=== PATIENT | female | born 1980 | race Caucasian/White ===

== ENCOUNTER 2017-01-16 15:01 | Emergency (ER) | payer BC ==
--- NOTE | 2017-01-16 15:09 | PDOC ---
Rapid Medical Evaluation Chief Complaint: Back Pain Time Seen by Provider: 01/16/17 15:08 Medical Evaluation: Allergies Allergy/AdvReac Type Severity Reaction Status Date / Time No Known Allergies Allergy Verified 08/03/15 07:39 01/16/17 15:08 I have performed a brief in-person evaluation of this patient. The patient presents with a chief complaint of: back injury Pertinent physical exam findings: ambulatory, stable I have ordered the following: provider to determine The patient will proceed to the ED for further evaluation.
[2017-01-16 15:11] VITALS: BP 108/90; PULSE 85; TEMP 97.8; BMI 31.6
--- NOTE | 2017-01-16 16:38 | PDOC ---
History of Present Illness - General Chief Complaint: Back Pain Stated Complaint: BACK PAIN Time Seen by Provider: 01/16/17 15:08 - History of Present Illness Initial Comments: 01/16/17 16:37 CHIEF COMPLAINT: back pain HISTORY OF PRESENT ILLNESS: 36 yo F with no significant PMH presents to [facility] with c/o of back pain s/p lifting heavy boxes at work. Patient reports moving "several" heavy boxes and upon the fourth one, she felt her back "give out." She continued to work for the rest of the afternoon by mitigating the pain with a heat pad and taking 2 Advil approximately 5 hours ago. She denies any chance of . PAST MEDICAL HISTORY: Denies past medical history FAMILY HISTORY: Denies SOCIAL HISTORY: Denies tobacco, alcohol, illicit drug use. SURGICAL HISTORY: Denies ALLERGIES: No known drug allergies REVIEW OF SYSTEMS General/Constitutional: Denies fever or chills. Denies weakness, weight change. HEENT: Denies change in vision. Denies ear pain or discharge. Denies sore throat. Cardiovascular: Denies chest pain or shortness of breath. Respiratory: Denies cough, wheezing, or hemoptysis. Gastrointestinal: Denies loss of bowel or bladder function. Denies nausea, vomiting, diarrhea or constipation. Denies rectal bleeding. Genitourinary: Denies dysuria, frequency, or change in urination. Musculoskeletal: Lower back pain, worsening with movement. Denies loss of sensation to lower extremities. Skin and breasts: Denies rash or easy bruising. PHYSICAL EXAM General Appearance: Well-appearing, appropriately dressed. No apparent distress. HEENT: EOMI, PERRLA. No conjunctival pallor. No photophobia, scleral icterus. Respiratory/Chest: Lungs CTAB. Cardiovascular: RRR. S1, S2. Gastrointestinal/Abdominal: Normal bowel sounds. Abdomen soft, non-distended. No tenderness or rebound tenderness. No organomegaly, pulsatile mass, guarding , hernia, hepatomegaly, splenomegaly. Musculoskeletal/Extremities: Tenderness to mid-lower back on palpation. Sensory discrimination intact to LE b/l. Normal inspection. FROM of all extremities, normal capillary refill. Pelvis Stable. No CVA tenderness. No tenderness to extremities, pedal edema, swelling, erythema or deformity. Integumentary: Appropriate color, dry, warm. No cyanosis, erythema, jaundice or rash Neurologic: sales and marketing director II-XII intact. Fully oriented, alert. Appropriate mood/affect. Motor strength 5/5. No appreciable EOM palsy, facial droop or sensory deficit. 01/16/17 16:46 Past History - Past Medical History Allergies/Adverse Reactions: Allergies Allergy/AdvReac Type Severity Reaction Status Date / Time No Known Allergies Allergy Verified 01/16/17 15:11 Home Medications: Ambulatory Orders Cyclobenzaprine HCl [Flexeril -] 10 mg PO HS #7 tablet 01/16/17 Diclofenac Sodium 75 mg PO BID #14 tablet. 01/16/17 COPD: No HTN: No - Surgical History Abdominal Surgery: Yes Cholecystectomy: Yes - Reproductive History (#): 5 Para: 2 Therapeutic (s) & number: Yes (1) Spontaneous : 1 - Suicide/Smoking/Psychosocial Hx Smoking Status: No Smoking History: Never smoked Have you smoked in the past 12 months: No Number of Cigarettes Smoked Daily: 0 Information on smoking cessation initiated: No Hx Alcohol Use: No Drug/Substance Use Hx: No Substance Use Type: None *Physical Exam - Vital Signs Last Vital Signs Temp Pulse Resp BP Pulse Ox 97.8 F 85 18 108/90 100 01/16/17 15:08 01/16/17 15:08 01/16/17 15:08 01/16/17 15:08 01/16/17 15:08 Medical Decision Making - Medical Decision Making 01/16/17 16:49 36 yo F with no significant PMH presents [facility] with c/o of back pain s/ p lifting heavy boxes at work. -60 mg Toradol Diclofenac, cyclobenzaprine rx sent to pharm Advised patient to take medication as prescribed and follow up with orthopedics if pain persists past 2-3 days. Advised patient of signs and symptoms for return to ED. Patient verbalized understanding and agrees to plan. *DC/Admit/Observation/Transfer Diagnosis at time of Disposition: Low back pain Qualifiers: Chronicity: acute Back pain laterality: midline Sciatica presence: without sciatica Qualified Code(s): M54.5 - Low back pain - Discharge Dispostion Disposition: HOME Condition at time of disposition: Stable Admit: No - Prescriptions Prescriptions: Cyclobenzaprine HCl [Flexeril -] 10 mg PO HS #7 tablet Diclofenac Sodium 75 mg PO BID #14 tablet. - Referrals Referrals: Domingo Velasquez MD [Staff Physician] - - Patient Instructions Printed Discharge Instructions: DI for Muscle Strain, DI for Low Back Pain Additional Instructions: Please take medication as prescribed. As discussed, do NOT drive, drink alcohol , or operate machinery while taking cyclobenzaprine. Follow up with orthopedics in 3-5 days if symptoms do not improve. If you develop ANY loss of bowel or bladder function, loss of sensation to your legs, inability to walk, or any new or worsening symptoms, please return to the ER. - Post Discharge Activity
[2017-01-16] MEDS ORDERED: KETOROLAC TROMETHAMINE 60 MG/2 ML VIAL IM ONE (16:45)
[2017-01-16] MEDS ORDERED: KETOROLAC TROMETHAMINE 60 MG/2 ML VIAL ONE (16:57)
== END 2017-01-16 17:12 | disposition home or self-care (01) ==
LOC: JERFT 15:01
DX: M54.5 Low back pain (principal)
CPT/HCPCS: 84703; 99281-25

== ENCOUNTER 2018-01-07 21:19 | Emergency (ER) | payer BC ==
[2018-01-07 21:25] VITALS: BP 138/80; PULSE 91; TEMP 98.2; BMI 31.9
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
[2018-01-07] MEDS ORDERED: KETOROLAC TROMETHAMINE 60 MG/2 ML VIAL ONE (22:31)
[2018-01-07] MEDS ORDERED: KETOROLAC TROMETHAMINE 60 MG/2 ML VIAL IM ONE (22:32)
== END 2018-01-07 22:52 | disposition home or self-care (01) ==
LOC: JERFT 21:19
PROC: 3E0233Z Introduction of Anti-inflammatory into Muscle, Percutaneous Approach (ICD-10-PCS; principal; 2018-01-07)
DX: S16.1XXA Strain of muscle, fascia and tendon at neck level, initial encounter (principal); V48.6XXA Car passenger injured in noncollision transport accident in traffic accident, initial encounter; Y92.488 Other paved roadways as the place of occurrence of the external cause; Y93.89 Activity, other specified; Y99.8 Other external cause status
CPT/HCPCS: 84703; 99281-25

== ENCOUNTER 2019-04-22 13:24 | Emergency (ER) | payer BC ==
[2019-04-22 13:34] VITALS: BP 137/87; PULSE 115; TEMP 100.4; BMI 33.4
[2019-04-22] MEDS ORDERED: ACETAMINOPHEN 500 MG TABLET (FP) PO ONE (15:14)
[2019-04-22] MEDS ORDERED: ACETAMINOPHEN 500 MG TABLET (FP) ONE (15:27)
--- NOTE | 2019-04-22 15:34 | PDOC ---
History of Present Illness - General Chief Complaint: Cold Symptoms Stated Complaint: COUGH/HEADACHE Time Seen by Provider: 04/22/19 14:57 - History of Present Illness Initial Comments: 04/22/19 15:33 38-year-old female without comorbidities presents for flulike symptoms and positive flu contacts at work x1 day Past History - Past Medical History Allergies/Adverse Reactions: Allergies Allergy/AdvReac Type Severity Reaction Status Date / Time No Known Allergies Allergy Verified 04/22/19 13:34 Home Medications: Ambulatory Orders Cyclobenzaprine HCl 10 mg PO Q8H PRN #14 tablet 01/07/18 Naproxen [Naprosyn -] 500 mg PO BID #30 tablet 01/07/18 Oseltamivir Phosphate [Tamiflu] 75 mg PO BID #10 capsule 04/22/19 COPD: No HTN: No - Surgical History Abdominal Surgery: Yes Cholecystectomy: Yes - Reproductive History (#): 5 Para: 2 Therapeutic (s) & number: Yes (1) Spontaneous : 1 - Psycho Social/Smoking Cessation Hx Smoking Status: No Smoking History: Never smoked Have you smoked in the past 12 months: No Number of Cigarettes Smoked Daily: 0 Hx Alcohol Use: No Drug/Substance Use Hx: No Substance Use Type: None Review of Systems - Review of Systems Constitutional: Yes: Fever, Malaise, Night Sweats HEENTM: Yes: Nose Congestion Respiratory: Yes: Cough *Physical Exam - Vital Signs Last Vital Signs Temp Pulse Resp BP Pulse Ox 100.4 F H 115 H 18 137/87 98 04/22/19 13:30 04/22/19 13:30 04/22/19 13:30 04/22/19 13:30 04/22/19 13:30 - Physical Exam 04/22/19 15:33 GENERAL: The patient is awake, alert, and fully oriented, in no acute distress. HEAD: Normal with no signs of trauma. EYES: sclera anicteric, conjunctiva clear. ENT: Ears normal tympanic membranes normal oropharynx clear uvula midline NECK: Normal range of motion LUNGS: Breath sounds equal, clear to auscultation bilaterally. No wheezes, and no crackles. HEART: S1 and S2 without murmur, rub or gallop. ABDOMEN: Soft, nontender, normoactive bowel sounds. No guarding, no rebound. No masses. EXTREMITIES: Normal range of motion, no edema. No clubbing or cyanosis. No cords, erythema, or tenderness. NEUROLOGICAL: Cranial nerves II through XII grossly intact. PSYCH: Normal mood, normal affect. SKIN: Warm, Dry, normal turgor, no rashes or lesions noted. ED Treatment Course - Medications Given in the ED: ED Medications Discontinued Medications Generic Name Dose Route Start Last Admin Trade Name Vicky PRN Reason Stop Dose Admin Acetaminophen 1,000 mg 04/22/19 15:14 04/22/19 15:29 Tylenol - PO 04/22/19 15:15 1,000 mg ONCE ONE Administration Medical Decision Making - Medical Decision Making 04/22/19 15:33 We will treat for flu based on sick contacts and symptoms Discharge - Discharge Information Problems reviewed: Yes Clinical Impression/Diagnosis: Influenza Condition: Stable Disposition: HOME - Admission No - Additional Discharge Information Prescriptions: Oseltamivir Phosphate [Tamiflu] 75 mg PO BID #10 capsule - Follow up/Referral Referrals: Shantelle Kinsey MD [Staff Physician] - - Patient Discharge Instructions Additional Instructions: Tylenol Motrin as directed for fever and body aches. Return to the emergency room for worsening symptoms and without fail follow-up with your primary care physician in 1 to 2 days for further evaluation and treatment options. Please take the Tamiflu as directed. - Post Discharge Activity Work/Back to School Note: Back to Work
== END 2019-04-22 15:56 | disposition home or self-care (01) ==
LOC: JERFT 13:24
DX: J11.1 Influenza due to unidentified influenza virus with other respiratory manifestations (principal); Z90.49 Acquired absence of other specified parts of digestive tract
CPT/HCPCS: 99284-25

== ENCOUNTER 2020-04-08 15:26 | Emergency (ER) | payer OTHER ==
[2020-04-08 15:44] VITALS: BP 129/76; TEMP 98.5; BMI 31.9
[2020-04-08 17:16] VITALS: PULSE 88
== END 2020-04-08 17:31 | disposition home or self-care (01) ==
LOC: JERFT 15:26 → JER 15:26 → JERFT 17:31
DX: U07.1 COVID-19 (principal); R07.89 Other chest pain
CPT/HCPCS: 71046-TC-FY; 93005; 93010; 99284-25

== ENCOUNTER 2020-10-01 13:32 | Emergency (ER) | payer OTHER ==
[2020-10-01 13:45] VITALS: BP 134/83; PULSE 71; TEMP 97.5; BMI 34.2
[2020-10-01] MEDS ORDERED: DIPHTH,PERTUSS(ACELL),TET 0.5 ML DISP.SYRIN IM ONE ×2 (14:33→14:34)
== END 2020-10-01 15:35 | disposition home or self-care (01) ==
LOC: JERFT 13:32
PROC: 3E0234Z Introduction of Serum, Toxoid and Vaccine into Muscle, Percutaneous Approach (ICD-10-PCS; principal; 2020-10-01)
DX: S61.151A Open bite of right thumb with damage to nail, initial encounter (principal); W54.0XXA Bitten by dog, initial encounter
CPT/HCPCS: 90715; 99284-25

== ENCOUNTER 2021-04-16 00:18 | Observation (INO) | payer OTHER ==
[2021-04-16 01:08] LABS: BASO % 0.8 % (0-2.0); EOS % 1.6 % (0-4.5); HEMATOCRIT 27.2 % (32.4-45.2); LYMPH % 26.1 % (8-40); MCHC 33.2 g/dl (32.0-36.0); MEAN CELL VOLUME 87.3 fl (80-96); MEAN PLT VOLUME 8.9 fl (7.5-11.1); MONO % 6.9 % (3.8-10.2); NEUT % 64.6 % (42.8-82.8); PLATELET COUNT 241 10^3/uL (134-434); RBC 3.11 M/mm3 (3.60-5.2); RDW 14.1 % (11.6-15.6); WHITE BLOOD COUNT 9.5 K/mm3 (4.0-10.0)
[2021-04-16] MEDS ORDERED: ONDANSETRON 4 MG/2 ML VIAL ONE (01:13)
[2021-04-16 01:15] LABS: INR 1.16 (0.83-1.09); PROTHROMBIN TIME (PATIENT) 13.4 SEC (9.7-13.0)
[2021-04-16 01:18] LABS: ACTIVATED PTT 20.6 SECONDS (25.2-36.5)
[2021-04-16 01:19] LABS: CALCIUM 8.5 mg/dL (8.5-10.1)
[2021-04-16 01:20] LABS: ALBUMIN 3.3 g/dl (3.4-5.0); BLOOD UREA NITROGEN 22.1 mg/dL (7-18)
[2021-04-16 01:23] LABS: CREATININE 0.8 mg/dL (0.55-1.3)
[2021-04-16 01:24] LABS: BILIRUBIN,TOTAL 0.2 mg/dL (0.2-1); TOT PROT 6.4 g/dl (6.4-8.2)
[2021-04-16] MEDS ORDERED: SODIUM CHLORIDE 0.9% 500 ML INFUS.BAG IV ONE (01:28)
[2021-04-16] MEDS ORDERED: ONDANSETRON 4 MG/2 ML VIAL IVPUSH ONE (01:29)
[2021-04-16 04:52] LABS: BASO % 0.4 % (0-2.0); EOS % 0.1 % (0-4.5); LYMPH % 15.1 % (8-40); MCH 28.9 pg (25.7-33.7); MCHC 33.4 g/dl (32.0-36.0); MEAN CELL VOLUME 86.6 fl (80-96); MEAN PLT VOLUME 8.3 fl (7.5-11.1); NEUT % 80.4 % (42.8-82.8); PLATELET COUNT 228 10^3/uL (134-434); RBC 2.77 M/mm3 (3.60-5.2); RDW 13.7 % (11.6-15.6); WHITE BLOOD COUNT 10.1 K/mm3 (4.0-10.0)
[2021-04-16] MEDS ORDERED: LACTATED RINGERS SOLUTION 1000 ML INFUS.BAG IV ONE (05:35)
[2021-04-16] MEDS ORDERED: TRANEXAMIC ACID 1000 MG/10 ML VIAL IVPUSH ONE (05:37)
[2021-04-16] MEDS ORDERED: medroxyPROGESTERone ACET 150 MG/1 ML VIAL IM ONE (05:37)
[2021-04-16] MEDS ORDERED: TRANEXAMIC ACID 1000 MG/10 ML VIAL ONE (05:56)
[2021-04-16] MEDS ORDERED: LACTATED RINGERS SOLUTION 1,000 ML IV SCH (08:00)
[2021-04-16 14:35] VITALS: BMI 31.5
[2021-04-16] MEDS: ACETAMINOPHEN 325 MG TABLET (FP) PO PRN ×2 (15:07→20:07)
[2021-04-16 19:40] LABS: HEMATOCRIT 24.6 % (32.4-45.2); HEMOGLOBIN 8.2 GM/dL (10.7-15.3); MCH 29.5 pg (25.7-33.7); MCHC 33.2 g/dl (32.0-36.0); MEAN PLT VOLUME 9.7 fl (7.5-11.1); PLATELET COUNT 211 10^3/uL (134-434); RBC 2.76 M/mm3 (3.60-5.2); RDW 14.4 % (11.6-15.6); WHITE BLOOD COUNT 11.5 K/mm3 (4.0-10.0)
[2021-04-17 09:03] LABS: HEMATOCRIT 23.9 % (32.4-45.2); HEMOGLOBIN 8.3 GM/dL (10.7-15.3); MCH 30.4 pg (25.7-33.7); MCHC 34.5 g/dl (32.0-36.0); MEAN PLT VOLUME 9.1 fl (7.5-11.1); PLATELET COUNT 196 10^3/uL (134-434); RBC 2.71 M/mm3 (3.60-5.2); RDW 14.3 % (11.6-15.6); WHITE BLOOD COUNT 9.4 K/mm3 (4.0-10.0)
[2021-04-17 09:20] LABS: BLOOD UREA NITROGEN 12.8 mg/dL (7-18); CALCIUM 8.1 mg/dL (8.5-10.1); MAGNESIUM 2.1 mg/dL (1.8-2.4)
[2021-04-17 09:24] LABS: CREATININE 0.6 mg/dL (0.55-1.3); PHOSPHOROUS 2.4 mg/dL (2.5-4.9)
[2021-04-17 10:10] VITALS: BP 128/57; PULSE 77; TEMP 98.4
[2021-04-17 13:16] LABS: EPI CELLS >36 /uL (0-25.1); HYALINE CASTS 0 /uL (0-3.1); URINE APPEARANCE CLEAR; URINE BACTERIA 235 /uL (0-1359); URINE BILIRUBIN NEGATIVE (NEGATIVE); URINE COLOR ORANGE; URINE GLUCOSE (UA) NEGATIVE (NEGATIVE); URINE KETONE NEGATIVE (NEGATIVE); URINE LEUK ESTERASE TRACE (NEGATIVE); URINE NITRITE NEGATIVE (NEGATIVE); URINE PROTEIN TRACE (NEGATIVE); URINE RBC 2442 /uL (0-23.9); URINE UROBILINOGEN 0.2 mg/dL (0.2-1.0); URINE WBC 85 /uL (0-25.8)
== END 2021-04-17 15:28 | disposition home or self-care (01) ==
LOC: JER 00:18 → JERBED 06:14 → INTOOBSV 06:14 → UNDOADMOB 06:14 → J8W 12:38 → JERBED 12:38 → J8W 14:20 → JERBED 14:20
PROVIDERS: ADMIT Internal Medicine; ATTEND Internal Medicine
PROC: 30233N1 Transfusion of Nonautologous Red Blood Cells into Peripheral Vein, Percutaneous Approach (ICD-10-PCS; principal; 2021-04-16)
DX: D62 Acute posthemorrhagic anemia (principal); D25.9 Leiomyoma of uterus, unspecified; D72.828 Other elevated white blood cell count; R73.9 Hyperglycemia, unspecified; N88.8 Other specified noninflammatory disorders of cervix uteri
CPT/HCPCS: 36415; 36430; 76830-TC; 80048; 80053; 81003; 82728; 83036; 83540; 83550; 83735; 84100; 84484; 84703; 85025; 85027; 85045; 85610; 85730; 86850; 86900; 86901; 86922; 87086; 87186; 93005; 93010; 99285-25; C9803; G0378; P9058; U0003; U0005

== ENCOUNTER 2021-06-04 09:14 | Inpatient (IN) | payer OTHER ==
[2021-06-02 17:01] VITALS: BMI 34.2
[2021-06-07] MEDS ORDERED: ceFAZolin SODIUM 1 GM VIAL ONE (06:45)
[2021-06-07] MEDS ORDERED: CEFAZOLIN 2 GM in DEXTROSE 5%-WATER - 100 ML IVPB ONE (07:00)
[2021-06-07] MEDS ORDERED: oxyCODONE HCL 5 MG TABLET PO PRN ×3 (07:43→11:39)
[2021-06-07] MEDS ORDERED: ONDANSETRON 4 MG/2 ML VIAL IVPUSH PRN ×2 (07:43→11:39)
[2021-06-07] MEDS ORDERED: BUPIVACAINE HCL/PF 0.5% (5MG/ML) 10 ML VIAL ONE ×2 (09:04→09:16)
[2021-06-07] MEDS ORDERED: BUPIVACAINE LIPOSOME/PF (EXPAREL) 266 MG/20 ML VIAL ONE ×2 (09:04→09:14)
[2021-06-07] MEDS ORDERED: HYDROmorphone HCl 2 MG/ML VIAL ONE (09:08)
[2021-06-07] MEDS ORDERED: MIDAZOLAM HCL 2 MG/2 ML SINGLE DOSE VIAL ONE ×2 (09:08)
[2021-06-07] MEDS ORDERED: VASOPRESSIN 20 UNITS/ML VIAL IV ONE (09:09)
[2021-06-07] MEDS ORDERED: HEPARIN NA (PORCINE) 5,000 UNITS/ML 1ML VIAL ONE (09:22)
[2021-06-07] MEDS ORDERED: ceFAZolin SODIUM 1 GM VIAL IVPB ONE (09:35)
[2021-06-07] MEDS ORDERED: PROPOFOL 20 ML ONE (09:49)
[2021-06-07] MEDS ORDERED: ROCURONIUM BROMIDE 50 MG/5 ML SYRINGE ONE (09:49)
[2021-06-07] MEDS ORDERED: NEOSTIGMINE METHYLSULFATE 0.5 MG/ML - 10 ML MDV ONE (11:03)
[2021-06-07] MEDS ORDERED: SIMETHICONE 80 MG TAB.CHEW (FP) PO PRN (11:39)
[2021-06-07] MEDS ORDERED: BISACODYL 5 MG TABLET.DR (FP) PO PRN (11:39)
[2021-06-07] MEDS ORDERED: DOCUSATE SODIUM 100 MG CAPSULE (FP) PO PRN (11:39)
[2021-06-07] MEDS ORDERED: FAMOTIDINE 10 MG TABLET PO PRN (12:03)
[2021-06-07] MEDS: LACTATED RINGERS SOLUTION 1,000 ML IV SCH (12:45)
[2021-06-07] MEDS: CEFAZOLIN 2 GM in DEXTROSE 5%-WATER - 100 ML IVPB SCH (17:13)
[2021-06-07] MEDS: IBUPROFEN 800 MG/8 ML IJ IVPB SCH (18:23)
[2021-06-07] MEDS: ACETAMINOPHEN 500 MG TABLET (FP) PO SCH (20:26)
[2021-06-07 21:29] LABS: HEMATOCRIT 25.8 % (32.4-45.2); HEMOGLOBIN 8.2 GM/dL (10.7-15.3); MCH 23.4 pg (25.7-33.7); MCHC 31.7 g/dl (32.0-36.0); MEAN CELL VOLUME 73.8 fl (80-96); MEAN PLT VOLUME 8.4 fl (7.5-11.1); PLATELET COUNT 412 10^3/uL (134-434); RDW 19.7 % (11.6-15.6)
[2021-06-07 22:02] LABS: CALCIUM 8.4 mg/dL (8.5-10.1)
[2021-06-07 22:03] LABS: BLOOD UREA NITROGEN 11.7 mg/dL (7-18)
[2021-06-07 22:06] LABS: CREATININE 0.9 mg/dL (0.55-1.3)
[2021-06-08] MEDS: IBUPROFEN 800 MG/8 ML IJ IVPB SCH ×2 (01:15→10:50)
[2021-06-08] MEDS: LACTATED RINGERS SOLUTION 1,000 ML IV SCH ×2 (01:41→11:21)
[2021-06-08] MEDS: CEFAZOLIN 2 GM in DEXTROSE 5%-WATER - 100 ML IVPB SCH (02:29)
[2021-06-08] MEDS: ACETAMINOPHEN 500 MG TABLET (FP) PO SCH ×4 (03:51→22:10)
[2021-06-08 09:15] LABS: HEMATOCRIT 23.3 % (32.4-45.2); HEMOGLOBIN 7.5 GM/dL (10.7-15.3); MCH 23.8 pg (25.7-33.7); MCHC 32.2 g/dl (32.0-36.0); MEAN CELL VOLUME 73.9 fl (80-96); MEAN PLT VOLUME 8.4 fl (7.5-11.1); PLATELET COUNT 333 10^3/uL (134-434); RBC 3.15 M/mm3 (3.60-5.2); RDW 19.7 % (11.6-15.6); WHITE BLOOD COUNT 10.7 K/mm3 (4.0-10.0)
[2021-06-08 09:36] LABS: CALCIUM 8.5 mg/dL (8.5-10.1)
[2021-06-08 09:37] LABS: BLOOD UREA NITROGEN 7.8 mg/dL (7-18)
[2021-06-08] MEDS: ENOXAPARIN NA (PORCINE) 40 MG/0.4 ML DISP.SYRIN SQ SCH (09:39)
[2021-06-08 09:40] LABS: CREATININE 0.8 mg/dL (0.55-1.3)
[2021-06-08] MEDS: IBUPROFEN 600 MG TABLET (FP) PO SCH ×2 (17:11→22:10)
[2021-06-09] MEDS: ACETAMINOPHEN 500 MG TABLET (FP) PO SCH ×4 (05:29→22:48)
[2021-06-09] MEDS: IBUPROFEN 600 MG TABLET (FP) PO SCH ×2 (05:30→11:31)
[2021-06-09] MEDS: LACTATED RINGERS SOLUTION 1,000 ML IV SCH ×3 (05:31→10:20)
[2021-06-09 09:16] LABS: BASO % 0.7 % (0-2.0); EOS % 0.4 % (0-4.5); HEMATOCRIT 21.7 % (32.4-45.2); LYMPH % 27.1 % (8-40); MCH 23.6 pg (25.7-33.7); MCHC 31.8 g/dl (32.0-36.0); MEAN CELL VOLUME 74.3 fl (80-96); MEAN PLT VOLUME 8.7 fl (7.5-11.1); MONO % 10.1 % (3.8-10.2); NEUT % 61.7 % (42.8-82.8); PLATELET COUNT 293 10^3/uL (134-434); RBC 2.92 M/mm3 (3.60-5.2); WHITE BLOOD COUNT 8.1 K/mm3 (4.0-10.0)
[2021-06-09] MEDS: ENOXAPARIN NA (PORCINE) 40 MG/0.4 ML DISP.SYRIN SQ SCH (09:44)
[2021-06-09 09:59] LABS: HEMOGLOBIN 6.9 GM/dL (10.7-15.3)
[2021-06-09] MEDS ORDERED: ACETAMINOPHEN INJECTION 100 ML IVPB ONE (12:27)
[2021-06-09 15:39] LABS: EPI CELLS 10 /uL (0-25.1); HYALINE CASTS 0 /uL (0-3.1); PH,URINE 6.5 (5.0-8.0); URINE APPEARANCE CLEAR; URINE BACTERIA 59 /uL (0-1359); URINE BILIRUBIN NEGATIVE (NEGATIVE); URINE COLOR ORANGE; URINE GLUCOSE (UA) NEGATIVE (NEGATIVE); URINE KETONE NEGATIVE (NEGATIVE); URINE LEUK ESTERASE TRACE (NEGATIVE); URINE NITRITE NEGATIVE (NEGATIVE); URINE PROTEIN NEGATIVE (NEGATIVE); URINE RBC 3451 /uL (0-23.9); URINE WBC 16 /uL (0-25.8)
[2021-06-09 20:45] LABS: BASO % 0.6 % (0-2.0); EOS % 0.7 % (0-4.5); HEMATOCRIT 25.9 % (32.4-45.2); HEMOGLOBIN 8.1 GM/dL (10.7-15.3); LYMPH % 30.3 % (8-40); MCH 23.8 pg (25.7-33.7); MCHC 31.4 g/dl (32.0-36.0); MEAN CELL VOLUME 75.7 fl (80-96); MEAN PLT VOLUME 8.6 fl (7.5-11.1); MONO % 9.6 % (3.8-10.2); NEUT % 58.8 % (42.8-82.8); PLATELET COUNT 307 10^3/uL (134-434); RBC 3.42 M/mm3 (3.60-5.2); WHITE BLOOD COUNT 9.3 K/mm3 (4.0-10.0)
[2021-06-10] MEDS: ACETAMINOPHEN 500 MG TABLET (FP) PO SCH ×3 (02:17→15:04)
[2021-06-10 10:01] LABS: BASO % 0.7 % (0-2.0); EOS % 1.5 % (0-4.5); HEMOGLOBIN 8.8 GM/dL (10.7-15.3); LYMPH % 22.3 % (8-40); MCH 24.5 pg (25.7-33.7); MCHC 32.6 g/dl (32.0-36.0); MEAN CELL VOLUME 75.1 fl (80-96); MEAN PLT VOLUME 8.6 fl (7.5-11.1); MONO % 7.5 % (3.8-10.2); PLATELET COUNT 354 10^3/uL (134-434); RDW 19.4 % (11.6-15.6); WHITE BLOOD COUNT 8.7 K/mm3 (4.0-10.0)
[2021-06-10] MEDS: LACTATED RINGERS SOLUTION 1,000 ML IV SCH (10:16)
[2021-06-10] MEDS: ENOXAPARIN NA (PORCINE) 40 MG/0.4 ML DISP.SYRIN SQ SCH (10:24)
[2021-06-10 13:48] VITALS: BP 119/73; PULSE 74; TEMP 98.8
== END 2021-06-10 17:04 | disposition home or self-care (01) | DRG 743 ==
LOC: J2C 06-07 04:20 → EDSTATUS 06-07 11:13 → J8W 06-07 12:49
PROVIDERS: ADMIT Obstetrics & Gynecology; ATTEND Obstetrics & Gynecology
PROC: 0UB90ZZ Excision of Uterus, Open Approach (ICD-10-PCS; 2021-06-07)
PROC: 0UB90ZZ Excision of Uterus, Open Approach (ICD-10-PCS; principal; 2021-06-07 08:30)
PROC: 0UDB7ZZ Extraction of Endometrium, Via Natural or Artificial Opening (ICD-10-PCS; 2021-06-07 08:30)
DX: D25.1 Intramural leiomyoma of uterus (principal); N85.00 Endometrial hyperplasia, unspecified; M48.02 Spinal stenosis, cervical region
CPT/HCPCS: 36415; 36430; 80048; 81003; 81025; 85025; 85027; 86850; 86900; 86901; 86922; 88305-TC; 94010; 94760; J1644; P9058

== ENCOUNTER 2021-07-10 02:17 | Emergency (ER) | payer OTHER ==
[2021-07-10 02:28] VITALS: BMI 34.2
[2021-07-10] MEDS ORDERED: ACETAMINOPHEN 1000 MG/100 ML BAG IVPB ONE (03:34)
[2021-07-10 04:07] LABS: BASO % 0.6 % (0-2.0); EOS % 4.8 % (0-4.5); HEMATOCRIT 28.8 % (32.4-45.2); HEMOGLOBIN 9.2 GM/dL (10.7-15.3); MCH 22.6 pg (25.7-33.7); MCHC 31.8 g/dl (32.0-36.0); MEAN CELL VOLUME 71.2 fl (80-96); MEAN PLT VOLUME 7.8 fl (7.5-11.1); MONO % 7.8 % (3.8-10.2); NEUT % 60.8 % (42.8-82.8); PLATELET COUNT 343 10^3/uL (134-434); RBC 4.05 M/mm3 (3.60-5.2); WHITE BLOOD COUNT 7.7 K/mm3 (4.0-10.0)
[2021-07-10 04:33] LABS: ALBUMIN 3.8 g/dl (3.4-5.0); BLOOD UREA NITROGEN 18.1 mg/dL (7-18)
[2021-07-10 04:36] LABS: CREATININE 0.6 mg/dL (0.55-1.3)
[2021-07-10 04:37] LABS: BILIRUBIN,TOTAL 0.2 mg/dL (0.2-1); TOT PROT 7.2 g/dl (6.4-8.2)
[2021-07-10 05:07] VITALS: BP 117/54; PULSE 70; TEMP 98
[2021-07-10 05:39] LABS: EPI CELLS 5 /uL (0-25.1); HYALINE CASTS 0 /uL (0-3.1); URINE APPEARANCE CLEAR; URINE BACTERIA 1 /uL (0-1359); URINE BILIRUBIN NEGATIVE (NEGATIVE); URINE COLOR RED; URINE GLUCOSE (UA) NEGATIVE (NEGATIVE); URINE KETONE NEGATIVE (NEGATIVE); URINE LEUK ESTERASE NEGATIVE (NEGATIVE); URINE NITRITE NEGATIVE (NEGATIVE); URINE PROTEIN 1+ (NEGATIVE); URINE RBC 13837 /uL (0-23.9); URINE UROBILINOGEN 0.2 mg/dL (0.2-1.0); URINE WBC 4 /uL (0-25.8)
== END 2021-07-10 08:52 | disposition home or self-care (01) ==
LOC: JER 02:17
PROC: 3E0333Z Introduction of Anti-inflammatory into Peripheral Vein, Percutaneous Approach (ICD-10-PCS; principal; 2021-07-10)
DX: R10.2 Pelvic and perineal pain (principal)
CPT/HCPCS: 36415; 74177-TC; 80053; 81003; 84703; 85025; 87086; 99285-25; Q9967

== ENCOUNTER 2021-10-04 03:56 | Emergency (ER) | payer OTHER ==
[2021-10-04 04:15] VITALS: BP 130/83; PULSE 95; RESP 17; TEMP 98; BMI 33.4
[2021-10-04] MEDS ORDERED: ACETAMINOPHEN 1000 MG/100 ML BAG IVPB ONE (04:46)
[2021-10-04] MEDS ORDERED: SODIUM CHLORIDE 0.9% 500 ML INFUS.BAG IV ONE (04:46)
[2021-10-04] MEDS ORDERED: ACETAMINOPHEN INJECTION 100 ML IVPB ONE (04:57)
[2021-10-04] MEDS ORDERED: morphine CARPU-JECT 2 MG/1 ML DISP.SYRIN IVPUSH ONE (05:28)
[2021-10-04 05:44] LABS: BASO % 0.5 % (0-2.0); EOS % 2.4 % (0-4.5); HEMATOCRIT 37.3 % (32.4-45.2); HEMOGLOBIN 11.9 GM/dL (10.7-15.3); MCH 23.4 pg (25.7-33.7); MCHC 31.9 g/dl (32.0-36.0); MEAN CELL VOLUME 73.3 fl (80-96); MEAN PLT VOLUME 8.6 fl (7.5-11.1); MONO % 7.3 % (3.8-10.2); NEUT % 58.8 % (42.8-82.8); PLATELET COUNT 352 10^3/uL (134-434); RBC 5.09 M/mm3 (3.60-5.2); RDW 22.9 % (11.6-15.6); WHITE BLOOD COUNT 9.7 K/mm3 (4.0-10.0)
[2021-10-04 06:05] LABS: CALCIUM 8.9 mg/dL (8.5-10.1)
[2021-10-04 06:06] LABS: ALBUMIN 3.9 g/dl (3.4-5.0); BLOOD UREA NITROGEN 16.5 mg/dL (7-18); INR 1.08 (0.83-1.09); PROTHROMBIN TIME (PATIENT) 12.4 SEC (9.7-13.0)
[2021-10-04 06:09] LABS: ACTIVATED PTT 31.2 SECONDS (25.2-36.5); CREATININE 0.7 mg/dL (0.55-1.3)
[2021-10-04 06:23] LABS: BILIRUBIN,TOTAL 0.2 mg/dL (0.2-1)
[2021-10-04 06:44] LABS: EPI CELLS 16 /uL (0-25.1); HYALINE CASTS 0 /uL (0-3.1); PH,URINE 5.5 (5.0-8.0); URINE APPEARANCE CLEAR; URINE BACTERIA 264 /uL (0-1359); URINE BILIRUBIN NEGATIVE (NEGATIVE); URINE COLOR YELLOW; URINE GLUCOSE (UA) NEGATIVE (NEGATIVE); URINE KETONE NEGATIVE (NEGATIVE); URINE LEUK ESTERASE TRACE (NEGATIVE); URINE NITRITE NEGATIVE (NEGATIVE); URINE PROTEIN NEGATIVE (NEGATIVE); URINE RBC 18 /uL (0-23.9); URINE UROBILINOGEN 0.2 mg/dL (0.2-1.0); URINE WBC 62 /uL (0-25.8)
[2021-10-04 08:15] LABS: ANISOCYTOSIS 1+; MACROCYTOSIS 0
== END 2021-10-04 10:42 | disposition home or self-care (01) ==
LOC: JER 03:56
PROC: 3E033GC Introduction of Other Therapeutic Substance into Peripheral Vein, Percutaneous Approach (ICD-10-PCS; principal; 2021-10-04)
DX: R10.11 Right upper quadrant pain (principal)
CPT/HCPCS: 36415; 74176-TC; 76700-TC; 80053; 81003; 83690; 84703; 85025; 85610; 85730; 86850; 86900; 86901; 87077; 87086; 87186; 93005; 93010; 99285-25

== ENCOUNTER 2022-12-07 12:18 | Emergency (ER) | payer OTHER ==
[2022-12-07 12:22] VITALS: RESP 18; BMI 33.4
[2022-12-07] MEDS ORDERED: ACETAMINOPHEN 1000 MG/100 ML BAG IVPB ONE (12:46)
[2022-12-07] MEDS ORDERED: SODIUM CHLORIDE 0.9% 500 ML INFUS.BAG IV ONE (12:46)
[2022-12-07] MEDS ORDERED: ACETAMINOPHEN INJECTION 100 ML IVPB ONE (13:22)
[2022-12-07 13:55] LABS: BASO % 0.7 % (0-2.0); EOS % 1.3 % (0-4.5); HEMATOCRIT 38.7 % (32.4-45.2); LYMPH % 31.7 % (8-40); MCH 29.3 pg (25.7-33.7); MCHC 33.6 g/dl (32.0-36.0); MEAN CELL VOLUME 87.1 fl (80-96); MEAN PLT VOLUME 9.1 fl (7.5-11.1); MONO % 7.7 % (3.8-10.2); NEUT % 58.6 % (42.8-82.8); PLATELET COUNT 331 10^3/uL (134-434); RBC 4.45 M/mm3 (3.60-5.2); RDW 14.3 % (11.6-15.6); WHITE BLOOD COUNT 8.9 K/mm3 (4.0-10.0)
[2022-12-07 14:01] LABS: INR 1.22 (0.83-1.09); PROTHROMBIN TIME (PATIENT) 14.1 SEC (9.7-13.0)
[2022-12-07 14:19] LABS: POTASSIUM 4.9 mmol/L (3.5-5.1)
[2022-12-07 14:20] LABS: CALCIUM 9.3 mg/dL (8.5-10.1)
[2022-12-07 14:24] LABS: CREATININE 0.8 mg/dL (0.55-1.3)
[2022-12-07 14:25] LABS: BILIRUBIN,TOTAL 0.5 mg/dL (0.2-1); TOT PROT 8.2 g/dl (6.4-8.2)
[2022-12-07 16:20] LABS: EPI CELLS >36 /uL (0-25.1); HYALINE CASTS 2 /uL (0-3.1); PH,URINE 5.5 (5.0-8.0); URINE APPEARANCE CLEAR; URINE BACTERIA 962 /uL (0-1359); URINE BILIRUBIN NEGATIVE (NEGATIVE); URINE COLOR YELLOW; URINE GLUCOSE (UA) NEGATIVE (NEGATIVE); URINE KETONE 2+ (NEGATIVE); URINE LEUK ESTERASE 1+ (NEGATIVE); URINE NITRITE NEGATIVE (NEGATIVE); URINE PROTEIN NEGATIVE (NEGATIVE); URINE RBC 33 /uL (0-23.9); URINE UROBILINOGEN 0.2 mg/dL (0.2-1.0); URINE WBC 89 /uL (0-25.8)
[2022-12-07 16:54] LABS: GAMMA GLUTAMYL TRANSPEPTIDASE 58 U/L (5-85)
[2022-12-07 17:02] LABS: LDH 218 U/L (84-246)
[2022-12-07 17:31] VITALS: BP 132/66; PULSE 64; TEMP 98
[2022-12-07] MEDS ORDERED: CEPHALEXIN MONOHYDRATE 500 MG CAPSULE (UD) PO ONE (19:22)
[2022-12-07] MEDS ORDERED: CEPHALEXIN MONOHYDRATE 500 MG CAPSULE (UD) ONE (19:42)
== END 2022-12-07 19:59 | disposition home or self-care (01) ==
LOC: JER 12:18
PROC: 3E033NZ Introduction of Analgesics, Hypnotics, Sedatives into Peripheral Vein, Percutaneous Approach (ICD-10-PCS; principal; 2022-12-07)
DX: R51.9 Headache, unspecified (principal); R42 Dizziness and giddiness; R00.2 Palpitations; R11.0 Nausea; R53.83 Other fatigue; N30.01 Acute cystitis with hematuria
CPT/HCPCS: 36415; 70450-TC; 76705-TC; 80053; 81003; 82977; 83615; 85025; 85610; 86707; 86708; 86803; 87086; 87340; 87350; 87517; 93005; 93010; 99285-25

== ENCOUNTER 2023-01-05 09:04 | Observation (INO) | payer OTHER ==
[2023-01-05 09:14] VITALS: BMI 33.1
[2023-01-05] MEDS ORDERED: METOCLOPRAMIDE HCL INJECTION 10 MG/2 ML VIAL IVPB ONE (10:03)
[2023-01-05] MEDS ORDERED: SODIUM CHLORIDE 0.9% 500 ML INFUS.BAG IV ONE (10:03)
[2023-01-05] MEDS ORDERED: ACETAMINOPHEN 1000 MG/100 ML BAG IVPB ONE (10:03)
[2023-01-05] MEDS ORDERED: METOCLOPRAMIDE HCL INJECTION 10 MG/2 ML VIAL ONE (10:09)
[2023-01-05] MEDS ORDERED: ACETAMINOPHEN INJECTION 100 ML IVPB ONE (10:09)
[2023-01-05 10:16] LABS: BASO % 0.7 % (0-2.0); EOS % 0.7 % (0-4.5); HEMATOCRIT 39.5 % (32.4-45.2); HEMOGLOBIN 13.3 GM/dL (10.7-15.3); LYMPH % 23.9 % (8-40); MCH 28.9 pg (25.7-33.7); MCHC 33.7 g/dl (32.0-36.0); MEAN CELL VOLUME 85.8 fl (80-96); NEUT % 66.7 % (42.8-82.8); PLATELET COUNT 417 10^3/uL (134-434); RBC 4.61 M/mm3 (3.60-5.2); RDW 14.5 % (11.6-15.6); WHITE BLOOD COUNT 8.1 K/mm3 (4.0-10.0)
[2023-01-05 10:19] LABS: INR 1.17 (0.83-1.09); PROTHROMBIN TIME (PATIENT) 13.5 SEC (9.7-13.0)
[2023-01-05 10:21] LABS: ACTIVATED PTT 31.6 SECONDS (25.2-36.5)
[2023-01-05 10:22] LABS: CHLORIDE 105 mmol/L (98-107); POTASSIUM 4.6 mmol/L (3.5-5.1); SODIUM 139 mmol/L (136-145)
[2023-01-05 10:24] LABS: CALCIUM 9.2 mg/dL (8.5-10.1)
[2023-01-05 10:25] LABS: ALBUMIN 4.1 g/dl (3.4-5.0); BLOOD UREA NITROGEN 14.3 mg/dL (7-18); GLUCOSE,RANDOM 104 mg/dL (74-106)
[2023-01-05 10:28] LABS: CHOLESTEROL 182 mg/dL (50-200); CREATININE 0.7 mg/dL (0.55-1.3); SGOT/AST 36 U/L (15-37); SGPT/ALT 54 U/L (13-61)
[2023-01-05 10:29] LABS: BILIRUBIN,TOTAL 0.5 mg/dL (0.2-1); LDL CHOLESTEROL (ONLY SJRH) 119 mg/dL (5-100)
[2023-01-05 10:30] LABS: ALK PHOS 84 U/L (45-117); HDL CHOLESTEROL 52 mg/dL (40-60)
[2023-01-05 10:50] LABS: ANION GAP 6 mmol/L (4-13); CO2 28 mmol/L (21-32)
[2023-01-05] MEDS ORDERED: MECLIZINE HCL 25 MG TABLET (FP) PO ONE (11:08)
[2023-01-05] MEDS ORDERED: MECLIZINE HCL 25 MG TABLET (FP) ONE (11:12)
[2023-01-05 14:41] LABS: PH,URINE 5.5 (5.0-8.0); URINE APPEARANCE CLEAR; URINE BILIRUBIN NEGATIVE (NEGATIVE); URINE COLOR YELLOW; URINE GLUCOSE (UA) NEGATIVE (NEGATIVE); URINE KETONE NEGATIVE (NEGATIVE); URINE LEUK ESTERASE NEGATIVE (NEGATIVE); URINE NITRITE NEGATIVE (NEGATIVE); URINE PROTEIN NEGATIVE (NEGATIVE); URINE UROBILINOGEN 0.2 mg/dL (0.2-1.0)
[2023-01-05 15:26] VITALS: RESP 18
[2023-01-05] MEDS ORDERED: POTASSIUM CHLORIDE ORAL LIQUID 20 MEQ/15 ML ONE (21:26)
[2023-01-05] MEDS: POTASSIUM CHLORIDE ORAL LIQUID 20 MEQ/15 ML PO SCH (21:33)
[2023-01-06] MEDS ORDERED: MECLIZINE HCL 25 MG TABLET (FP) PO ONE (01:45)
[2023-01-06] MEDS: POTASSIUM CHLORIDE ORAL LIQUID 20 MEQ/15 ML PO SCH (09:04)
[2023-01-06] MEDS ORDERED: ACETAMINOPHEN 325 MG TABLET (FP) PO PRN (12:03)
[2023-01-06] MEDS ORDERED: ACETAMINOPHEN/CAFFEINE/BUTALBITAL 1 TAB PO ONE (13:43)
[2023-01-06] MEDS ORDERED: IBUPROFEN 600 MG TABLET (FP) PO ONE (14:53)
[2023-01-06 15:22] VITALS: BP 149/70; PULSE 67; TEMP 97.8
[2023-01-07] MEDS ORDERED: MECLIZINE HCL 25 MG TABLET (FP) PO SCH (10:00)
== END 2023-01-06 17:23 | disposition home or self-care (01) ==
LOC: JER 09:04 → JERBED 11:36 → J4W 01-06 01:04
PROVIDERS: ADMIT Internal Medicine; ATTEND Internal Medicine
PROC: 3E033NZ Introduction of Analgesics, Hypnotics, Sedatives into Peripheral Vein, Percutaneous Approach (ICD-10-PCS; principal; 2023-01-05)
PROC: 3E033GC Introduction of Other Therapeutic Substance into Peripheral Vein, Percutaneous Approach (ICD-10-PCS; 2023-01-05)
PROC: 3E0337Z Introduction of Electrolytic and Water Balance Substance into Peripheral Vein, Percutaneous Approach (ICD-10-PCS; 2023-01-05)
DX: G93.5 Compression of brain (principal); R27.0 Ataxia, unspecified; R51.9 Headache, unspecified; K76.0 Fatty (change of) liver, not elsewhere classified; F41.0 Panic disorder [episodic paroxysmal anxiety]; D25.9 Leiomyoma of uterus, unspecified; Z90.49 Acquired absence of other specified parts of digestive tract
CPT/HCPCS: 0241U-QW; 36415; 70450-TC; 70496-TC; 70498-TC; 70551-TC; 80053; 80061; 81003; 82550; 82553; 82962; 83036; 84439; 84443; 84484; 84703; 85025; 85610; 85730; 93005; 93010; 99285-25; G0378; Q9967

== ENCOUNTER 2023-03-12 01:17 | Emergency (ER) | payer OTHER ==
[2023-03-12 01:24] VITALS: BP 145/78; PULSE 78; RESP 18; TEMP 97.8; BMI 31.3
[2023-03-12] MEDS ORDERED: ACETAMINOPHEN 500 MG TABLET (FP) PO ONE (01:55)
[2023-03-12] MEDS ORDERED: ACETAMINOPHEN 500 MG TABLET (FP) ONE (02:08)
[2023-03-12] MEDS ORDERED: METHOCARBAMOL 500 MG TABLET PO ONE (02:17)
[2023-03-12] MEDS ORDERED: LIDOCAINE 5% TOPICAL PATCH TP ONE (02:18)
[2023-03-12] MEDS ORDERED: IBUPROFEN 600 MG TABLET (FP) PO ONE ×2 (02:18→02:27)
[2023-03-12] MEDS ORDERED: BACITRACIN ZINC 15 GM TUBE TOPICAL OINTMENT TP ONE (02:19)
[2023-03-12] MEDS ORDERED: LIDOCAINE 4% PATCH TP ONE (02:27)
[2023-03-12] MEDS ORDERED: BACITRACIN ZINC 15 GM TUBE TOPICAL OINTMENT ONE (02:27)
[2023-03-12] MEDS ORDERED: METHOCARBAMOL 500 MG TABLET ONE (02:27)
[2023-03-12 02:30] LABS: EPI CELLS 13 /uL (0-25.1); HCG,QUALITATIVE URINE Negative; HYALINE CASTS 0 /uL (0-3.1); PH,URINE 5.5 (5.0-8.0); URINE APPEARANCE CLEAR; URINE BACTERIA 203 /uL (0-1359); URINE BILIRUBIN NEGATIVE (NEGATIVE); URINE COLOR YELLOW; URINE GLUCOSE (UA) NEGATIVE (NEGATIVE); URINE KETONE 2+ (NEGATIVE); URINE LEUK ESTERASE TRACE (NEGATIVE); URINE NITRITE NEGATIVE (NEGATIVE); URINE PROTEIN NEGATIVE (NEGATIVE); URINE RBC 52 /uL (0-23.9); URINE UROBILINOGEN 0.2 mg/dL (0.2-1.0); URINE WBC 39 /uL (0-25.8)
[2023-03-12] MEDS ORDERED: LIDOCAINE PATCH REMOVAL MC SCH (22:00)
== END 2023-03-12 03:40 | disposition home or self-care (01) ==
LOC: JER 01:17
DX: M54.6 Pain in thoracic spine (principal); R07.81 Pleurodynia; W10.8XXA Fall (on) (from) other stairs and steps, initial encounter; Y93.89 Activity, other specified; Y92.049 Unspecified place in boarding-house as the place of occurrence of the external cause
CPT/HCPCS: 71046-TC-FY; 72070-TC-FY; 73110-TC-LT-FY; 73130-TC-LT-FY; 81003; 84703; 87086; 99284-25

== ENCOUNTER 2023-05-24 14:18 | Emergency (ER) | payer OTHER, BC ==
[2023-05-24 14:28] VITALS: BP 132/52; PULSE 63; RESP 18; TEMP 98.1; BMI 29.6
[2023-05-24 16:07] LABS: BASO % 0.6 % (0-2.0); EOS % 0.4 % (0-4.5); HEMATOCRIT 38.8 % (32.4-45.2); HEMOGLOBIN 12.5 GM/dL (10.7-15.3); LYMPH % 25.1 % (8-40); MCHC 32.1 g/dl (32.0-36.0); MONO % 7.2 % (3.8-10.2); NEUT % 66.7 % (42.8-82.8); PLATELET COUNT 350 10^3/uL (134-434); RBC 4.62 M/mm3 (3.60-5.2); RDW 15.7 % (11.6-15.6); WHITE BLOOD COUNT 11.2 K/mm3 (4.0-10.0)
[2023-05-24 16:28] LABS: POTASSIUM 4.1 mmol/L (3.5-5.1)
[2023-05-24 16:32] LABS: CALCIUM 9.9 mg/dL (8.5-10.1)
[2023-05-24 16:33] LABS: ALBUMIN 4.2 g/dl (3.4-5.0); BLOOD UREA NITROGEN 15.6 mg/dL (7-18)
[2023-05-24 16:36] LABS: CREATININE 0.8 mg/dL (0.55-1.3)
[2023-05-24 16:37] LABS: BILIRUBIN,TOTAL 0.4 mg/dL (0.2-1); TOT PROT 8.3 g/dl (6.4-8.2)
== END 2023-05-24 18:07 | disposition home or self-care (01) ==
LOC: JERFT 14:18 → JER 14:18 → JERFT 18:07
DX: R07.89 Other chest pain (principal); R51.9 Headache, unspecified; R53.83 Other fatigue; R68.83 Chills (without fever); B34.9 Viral infection, unspecified; Z20.822 Contact with and (suspected) exposure to COVID-19
CPT/HCPCS: 0241U-QW; 36415; 71046-TC-FY; 80053; 84484; 85025; 93005; 93010; 99285-25